=== PATIENT | male | born 1995 | race African-American/Black ===

== ENCOUNTER 2018-06-09 19:09 | Emergency (ER) | payer MEDICAID ==
[2018-06-09] MEDS ORDERED: Dextrose 5%-Lactated Ringers 1,000 ML IV SCH (19:30)
[2018-06-09] MEDS ORDERED: Ibuprofen 600 MG Tab PO ONE (20:47)
[2018-06-09] MEDS ORDERED: Acetaminophen 500 MG Tab PO SCH (21:00)
--- NOTE | 2018-06-11 04:40 | EDM.PDOC ---
ED HPI GENERAL MEDICAL PROBLEM - General Chief Complaint: General Stated Complaint: GENERAL Time Seen by Provider: 06/09/18 19:09 Source of Information: Reports: Patient History Limitations: Reports: No Limitations - History of Present Illness INITIAL COMMENTS - FREE TEXT/NARRATIVE: PLAY FOOTBALL FOR [employer] AND AFTER PRACTICE HAD SHAKES WHICH ARE GETTING WORSE, IS HE IS THE FASTEST BACK ON THE TEAM AND DRANK LOT OF WATER BUT IS DEHYDRATED (ON A HOT FOOTBALL PRACTICE DAY). DENIES USING STREET DRUGS OR HAVING INHERITED TREMORDEMNIES SEIAURE HX OR HEADACHE TODAY Onset: Today Duration: Hour(s): (1 HOUR) Improves with: Reports: Other (NA) Worsens with: Reports: None, Other (NA) Associated Symptoms: Reports: No Other Symptoms Treatments [employer]: Reports: Other (see below) (NA) generalized pain Pain Score (Numeric/FACES): 3 - Related Data Allergies Allergy/AdvReac Type Severity Reaction Status Date / Time No Known Allergies Allergy Verified 06/09/18 20:09 Home Meds: Home Meds NK [No Known Home Meds] 06/09/18 [History] Past Medical History - Past Health History Medical/Surgical History: Denies Medical/Surgical History Social & Family History - Family History Family Medical History: Noncontributory - Tobacco Use Smoking Status *Q: Never Smoker - Caffeine Use Caffeine Use: Reports: None - Recreational Drug Use Recreational Drug Use: No ED ROS GENERAL - Review of Systems Review Of Systems: See Below Constitutional: Reports: No Symptoms HEENT: Reports: No Symptoms Respiratory: Reports: No Symptoms Cardiovascular: Reports: No Symptoms Endocrine: Reports: No Symptoms GI/Abdominal: Reports: No Symptoms : Reports: No Symptoms Musculoskeletal: Reports: No Symptoms Skin: Reports: No Symptoms Neurological: Reports: Tremors, Other (NO PAST MED HX OF TREMORS) Psychiatric: Reports: No Symptoms Hematologic/Lymphatic: Reports: No Symptoms Immunologic: Reports: No Symptoms ED EXAM, GENERAL - Physical Exam Exam: See Below Free Text/Narrative:: 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 WHO IS INMODEARTE DISTRESS OVER THE ( TREMORS) "SHAKES" Exam Limited By: No Limitations General Appearance: Alert, Mild Distress Ears: Normal External Exam, Normal Canal, Hearing Grossly Normal Nose: Normal Inspection, Normal Mucosa Throat/Mouth: Normal Inspection Head: Atraumatic Neck: Normal Inspection Cardiovascular: Normal Peripheral Pulses Peripheral Pulses: 1+: Radial (L), Radial (R) GI/Abdominal: Normal Bowel Sounds, Soft, Non-Tender, No Organomegaly, No Distention, No Abnormal Bruit, No Mass (Male) Exam: No Hernia Back Exam: Normal Inspection Extremities: Normal Inspection, Normal Range of Motion, Non-Tender, No Pedal Edema, Normal Capillary Refill Neurological: Alert, Oriented, CN II-XII Intact, Normal Cognition, Normal Gait, Normal Reflexes, No Motor/Sensory Deficits, Other (TREMULOUS FAST OSCILLATIOIN OF EXTENDED FOREARMS) Psychiatric: Anxious Course - Vital Signs Last Recorded V/S: Last Vital Signs Temp 36.3 C 06/09/18 21:08 Pulse 89 06/09/18 21:08 Resp 17 06/09/18 21:08 BP 139/89 06/09/18 21:08 Pulse Ox 100 06/09/18 21:08 - Orders/Labs/Meds Labs: Laboratory Tests 06/09/18 06/09/18 06/09/18 Range/Units 19:22 19:30 19:30 WBC (4.5-12.0) X10-3/uL RBC (4.30-5.75) x10(6)uL Hgb (11.5-15.5) g/dL Hct (30.0-51.3) % MCV (80-96) fL MCH (27.7-33.6) pg MCHC (32.2-35.4) g/dL RDW (11.5-15.5) % Plt Count (125-369) X10(3)uL MPV (7.4-10.4) fL Neut % (Auto) (46-82) % Lymph % (Auto) (13-37) % [place] % (Auto) (4-12) % Eos % (Auto) (1.0-5.0) % Baso % (Auto) (0-2) % Neut # (Auto) (1.6-8.3) # Lymph # (Auto) (0.6-5.0) # [place] # (Auto) (0.0-1.3) # Eos # (Auto) (0.0-0.8) # Baso # (Auto) (0.0-0.2) # Sodium (135-145) mmol/L Potassium (3.5-5.3) mmol/L Chloride (100-110) mmol/L Carbon Dioxide (21-32) mmol/L BUN (7-18) mg/dL Creatinine (0.70-1.30) mg/dL Est Cr Clr Drug Dosing Estimated GFR (MDRD) (>60) BUN/Creatinine Ratio (9-20) Glucose (80-116) mg/dL POC Glucose 109 (80-116) mg/dL Calcium (8.6-10.2) mg/dL Total Bilirubin (0.1-1.3) mg/dL AST (5-25) IU/L ALT (12-36) U/L Alkaline Phosphatase (56-112) IU/L Total Protein (6.0-8.0) g/dL Albumin (3.5-5.2) g/dL Globulin g/dL Albumin/Globulin Ratio Urine Color Yellow (YELLOW) Urine Appearance Clear (CLEAR) Urine pH 8.0 H (5.0-6.5) Ur Specific [place] 1.015 (1.010-1.025) Urine Protein Negative (NEGATIVE) mg/dL Urine Glucose (UA) Normal (NEGATIVE) mg/dL Urine Ketones Negative (NEGATIVE) mg/dL Urine Occult Blood Negative (NEGATIVE) Urine Nitrite Negative (NEGATIVE) Urine Bilirubin Negative (NEGATIVE) Urine Urobilinogen Normal (NEGATIVE) mg/dL Ur Leukocyte Esterase Negative (NEGATIVE) Urine RBC 0-5 (0) Urine WBC 0-5 (0) Ur Squamous Epith Cells Occasional (NS,R,O) Urine Bacteria Occasional H (NS) Urine Opiates Screen Negative (NEGATIVE) Ur Oxycodone Screen Positive (NEGATIVE) Ur Propoxyphene Screen Negative (NEGATIVE) Ur Barbituates Screen Negative (NEGATIVE) Ur Tricyclics Screen Negative (NEGATIVE) Ur Phencyclidine Scrn Negative (NEGATIVE) Ur Amphetamine Screen Positive H (NEGATIVE) Urine MDMA Screen Negative (NEGATIVE) U Benzodiazepines Scrn Negative (NEGATIVE) U Cocaine Metab Screen Negative (NEGATIVE) U Marijuana (THC) Screen Negative (NEGATIVE) 06/09/18 06/09/18 Range/Units 19:37 19:37 WBC 13.5 H (4.5-12.0) X10-3/uL RBC 4.92 (4.30-5.75) x10(6)uL Hgb 15.3 (11.5-15.5) g/dL Hct 44.8 (30.0-51.3) % MCV 91.1 (80-96) fL MCH 31.2 (27.7-33.6) pg MCHC 34.2 (32.2-35.4) g/dL RDW 12.2 (11.5-15.5) % Plt Count 298 (125-369) X10(3)uL MPV 7.7 (7.4-10.4) fL Neut % (Auto) 77.8 (46-82) % Lymph % (Auto) 15.5 (13-37) % [place] % (Auto) 5.8 (4-12) % Eos % (Auto) 0 L (1.0-5.0) % Baso % (Auto) 1 (0-2) % Neut # (Auto) 10.4 H (1.6-8.3) # Lymph # (Auto) 2.1 (0.6-5.0) # [place] # (Auto) 0.8 (0.0-1.3) # Eos # (Auto) 0.1 (0.0-0.8) # Baso # (Auto) 0.1 (0.0-0.2) # Sodium 137 (135-145) mmol/L Potassium 4.4 (3.5-5.3) mmol/L Chloride 102 (100-110) mmol/L Carbon Dioxide 29 (21-32) mmol/L BUN 9 (7-18) mg/dL Creatinine 1.1 (0.70-1.30) mg/dL Est Cr Clr Drug Dosing TNP Estimated GFR (MDRD) > 60 (>60) BUN/Creatinine Ratio 8.2 L (9-20) Glucose 113 (80-116) mg/dL POC Glucose (80-116) mg/dL Calcium 9.1 (8.6-10.2) mg/dL Total Bilirubin 0.5 (0.1-1.3) mg/dL AST 51 H (5-25) IU/L ALT 68 H (12-36) U/L Alkaline Phosphatase 54 L (56-112) IU/L Total Protein 8.2 H (6.0-8.0) g/dL Albumin 4.2 (3.5-5.2) g/dL Globulin 4.0 g/dL Albumin/Globulin Ratio 1.1 Urine Color (YELLOW) Urine Appearance (CLEAR) Urine pH (5.0-6.5) Ur Specific [place] (1.010-1.025) Urine Protein (NEGATIVE) mg/dL Urine Glucose (UA) (NEGATIVE) mg/dL Urine Ketones (NEGATIVE) mg/dL Urine Occult Blood (NEGATIVE) Urine Nitrite (NEGATIVE) Urine Bilirubin (NEGATIVE) Urine Urobilinogen (NEGATIVE) mg/dL Ur Leukocyte Esterase (NEGATIVE) Urine RBC (0) Urine WBC (0) Ur Squamous Epith Cells (NS,R,O) Urine Bacteria (NS) Urine Opiates Screen (NEGATIVE) Ur Oxycodone Screen (NEGATIVE) Ur Propoxyphene Screen (NEGATIVE) Ur Barbituates Screen (NEGATIVE) Ur Tricyclics Screen (NEGATIVE) Ur Phencyclidine Scrn (NEGATIVE) Ur Amphetamine Screen (NEGATIVE) Urine MDMA Screen (NEGATIVE) U Benzodiazepines Scrn (NEGATIVE) U Cocaine Metab Screen (NEGATIVE) U Marijuana (THC) Screen (NEGATIVE) Meds: Medications Discontinued Medications Generic Name Dose Route Start Last Admin Trade Name Jeremiah PRN Reason Stop Dose Admin Acetaminophen 1,000 mg 06/09/18 21:00 06/09/18 20:52 Tylenol Extra Strength PO 1,000 mg Q4H EMIL Administration Dextrose/Lactated Ringer's 1,000 mls @ 999 mls/hr 06/09/18 19:30 06/09/18 19: 50 Dextrose 5%-Lactated Ringers IV 999 mls/hr ASDIRECTED EMIL Administration Ibuprofen 600 mg 06/09/18 20:47 06/09/18 20:51 Motrin PO 06/09/18 20:48 600 mg ONETIME ONE Administration Departure - Departure Time of Disposition: 20:00 Disposition: Home, Self-Care 01 Clinical Impression: Tremor due to drug withdrawal - Discharge Information *PRESCRIPTION DRUG MONITORING PROGRAM REVIEWED*: No *COPY OF PRESCRIPTION DRUG MONITORING REPORT IN PATIENT VISHAL: No Instructions: Muscle Cramps and Spasms, [id number], Dehydration, Adult, Easy- to-Read Referrals: PCP,Unknown [Primary Care Provider] - Forms: ED Department Discharge Additional Instructions: be sure to be well hydrated, use the gatorade fi you can't sleep then go out and walk for 30 minutes to an hour in the evening before you go to bed for pain use 1000 mg tylenol together with 600 mg of ibuprofen ever 6 hours the shake were from dehydration follow up with MD as needed in 1 week
== END 2018-06-09 21:08 | disposition home or self-care (01) ==
LOC: FB.ED 19:09
DX: G25.1 Drug-induced tremor (principal); F19.239 Other psychoactive substance dependence with withdrawal, unspecified
CPT/HCPCS: 36415; 80053; 80305; 81001; 82962; 85025; 96360; 99284; A9270; J7042